=== PATIENT | female | born 1960 | race Caucasian/White ===

== ENCOUNTER 2018-04-11 12:27 | Day surgery (SDC) | payer MEDICAID ==
[2018-04-07 11:42] VITALS: BMI 32.1
[2018-04-11 12:58] LABS: BASO # 0.03 K/mm3 (0.0-2.0); BASO % 0.3 % (0.0-3.0); EOS # 0.1 (0.0-0.7); EOS % 0.8 % (1.5-5.0); GRAN # 7.1 (1.4-6.5); GRAN % 72.9 % (50.0-68.0); HEMOGLOBIN 11.8 g/dL (12.0-16.0); LYMPH % 20.8 % (22.0-35.0); MEAN CELL VOLUME 85.6 fl (80.0-105.0); MEAN CORPUSCULAR HEMOGLOBIN 27.4 pg (25.0-35.0); MEAN CORPUSCULAR HGB CONC 32.1 g/dl (31.0-37.0); MEAN PLATELET VOLUME 8.3 fl (7.0-11.0); MONO # 0.5 (0.1-0.6); MONO % 5.2 % (1.0-6.0); RBC 4.3 10^6/uL (3.5-6.1); RED CELL DISTRIBUTION WIDTH 13.5 % (11.5-14.5); WHITE BLOOD COUNT 9.8 10^3/ul (4.5-11.0)
[2018-04-11 13:05] LABS: INR 1.28; PARTIAL THROMBOPLASTIN TIME 29.3 Seconds (25.1-36.5); PROTHROMBIN TIME 14.8 SECONDS (9.4-12.5)
[2018-04-11 13:06] LABS: BLOOD UREA NITROGEN 9 mg/dL (7-21); CALCIUM 9.5 mg/dL (8.4-10.5); GFR NON-AFRICAN AMERICAN > 60
[2018-04-11] MEDS ORDERED: Midazolam 2 MG/2 ML VIAL ONE (15:10)
[2018-04-11] MEDS ORDERED: Oxycodone/Acetaminophen 5/325 mg Tab PO PRN (16:03)
[2018-04-11] MEDS ORDERED: Sodium Chloride 0.45% 1,000 ML IV SCH (16:15)
[2018-04-11] MEDS ORDERED: Midazolam 2 MG/2 ML VIAL IVP ONE (16:26)
[2018-04-11 18:04] VITALS: TEMP 98.3
[2018-04-11 18:17] VITALS: RESP 18
[2018-04-11 18:48] VITALS: BP 108/64; PULSE 88; O2SAT 100
--- NOTE | 2018-04-11 18:59 | CT ---
PROCEDURE: CT guided liver biopsy. HISTORY: Gallbladder carcinoma with liver involvement. Needs liver biopsy PHYSICIAN(S): Aguila Bey MD. TECHNIQUE: The relative risks and indications of the procedure were explained to the patient and her daughter and consent obtained. The patient was placed supine on the CT scanner and preliminary images through the liver obtained. Conscious sedation and monitoring were provided throughout the procedure by a nurse. There is a gallbladder mass with extension into the right lobe of the liver.. A right anterior oblique approach was selected and the area prepped and draped in the usual sterile fashion. 1% Xylocaine was used to anesthetize the skin and soft tissues. A 17-gauge guiding needle was advanced into the 12 cm right liver mass adjacent to the gallbladder. Its position was confirmed with CT. Using coaxial technique, multiple core biopsies were obtained. The postprocedure images show no evidence of significant hemorrhage. IMPRESSION: 1. CT-guided liver biopsy as described above.
== END 2018-04-11 18:50 | disposition home or self-care (01) ==
LOC: SDS 12:27
PROVIDERS: ATTEND Radiology Vascular & Interventional Radiology
DX: C22.7 Other specified carcinomas of liver (principal)
CPT/HCPCS: 36415; 49180; 77012; 80048; 85025; 85610; 85730; 88307; 99152; J2250; J2405; J3010; J7030

== ENCOUNTER 2018-05-02 08:56 | Day surgery (SDC) | payer MEDICAID ==
[2018-04-28 08:38] VITALS: BMI 31.1
[2018-05-02 09:34] LABS: BASO # 0.03 K/mm3 (0.0-2.0); BASO % 0.3 % (0.0-3.0); EOS # 0.1 (0.0-0.7); EOS % 1.1 % (1.5-5.0); GRAN # 6.39 (1.4-6.5); GRAN % 64.6 % (50.0-68.0); HEMOGLOBIN 10.6 g/dL (12.0-16.0); LYMPH # 2.6 (1.2-3.4); LYMPH % 25.8 % (22.0-35.0); MEAN CELL VOLUME 85.3 fl (80.0-105.0); MEAN CORPUSCULAR HEMOGLOBIN 27.3 pg (25.0-35.0); MEAN PLATELET VOLUME 8.3 fl (7.0-11.0); MONO # 0.8 (0.1-0.6); MONO % 8.2 % (1.0-6.0); RBC 3.88 10^6/uL (3.5-6.1); RED CELL DISTRIBUTION WIDTH 13.4 % (11.5-14.5); WHITE BLOOD COUNT 9.9 10^3/uL (4.5-11.0)
[2018-05-02 09:42] LABS: INR 1.17; PARTIAL THROMBOPLASTIN TIME 30.3 Seconds (25.1-36.5); PROTHROMBIN TIME 13.5 SECONDS (9.4-12.5)
[2018-05-02 09:44] LABS: BLOOD UREA NITROGEN 9 mg/dL (7-21); CALCIUM 9.1 mg/dL (8.4-10.5); GFR NON-AFRICAN AMERICAN > 60
[2018-05-02] MEDS ORDERED: Lidocaine 2% Inj (20ml) ONE (10:33)
[2018-05-02] MEDS ORDERED: Iodixanol 320 MG/ML 100 ML BOTTLE IV ONE (10:33)
[2018-05-02] MEDS ORDERED: Midazolam 2 MG/2 ML VIAL ONE (11:42)
[2018-05-02] MEDS ORDERED: Oxycodone/Acetaminophen 5/325 mg Tab PO PRN (12:33)
[2018-05-02] MEDS ORDERED: Sodium Chloride 0.45% 1,000 ML IV SCH (12:45)
[2018-05-02 13:28] VITALS: TEMP 98.3
[2018-05-02 14:11] VITALS: BP 92/56; PULSE 82; RESP 20; O2SAT 96
--- NOTE | 2018-05-02 19:27 | VASCULAR ---
PROCEDURE: Ultrasound and fluoroscopic right internal jugular venous access port. CLINICAL HISTORY: Metastatic gallbladder carcinoma.Venous port for chemotherapy. PHYSICIAN(S): Aguila Bey M.D. TECHNIQUE: The relative risks and indications of the procedure were explained to the patient and her family and consent obtained. The patient was placed supine on the arteriogram table and the right neck and chest prepped and draped in the usual sterile fashion. Conscious sedation monitoring was provided throughout the procedure by a nurse. Antibiotics were given prior to the procedure. Under direct ultrasound guidance, the right internal jugular vein was punctured with a micro-puncture set. A 0.035 angled Glidewire was advanced into the IVC. A 4 cm incision was made below the right clavicle and the pocket blunted dissected. A 8 Irish single-lumen catheter, 24 cm long, was advanced to the SVC/RA junction. The catheter was trimmed and attached to the port. The port aspirates and injects easily. The port was placed in the pocket and closed in 2 layers. The patient tolerated the procedure well. IMPRESSION: Ultrasound and fluoroscopically placed right internal jugular venous access port.
== END 2018-05-02 15:15 | disposition home or self-care (01) ==
LOC: SDS 08:56
PROVIDERS: ATTEND Radiology Vascular & Interventional Radiology
DX: C23 Malignant neoplasm of gallbladder (principal); M81.0 Age-related osteoporosis without current pathological fracture
CPT/HCPCS: 36415; 36561; 76937; 77001; 80048; 85025; 85610; 85730; 99152; 99153; C1769; C1788; J0690; J1644; J2250; J2405; J3010; J7030

== ENCOUNTER 2018-06-22 16:08 | Outpatient (CLI) | payer MEDICAID | END 2018-06-22 16:09 | disposition home or self-care (01) | LOC: LAB 16:08 ==

== ENCOUNTER 2018-06-28 18:43 | Outpatient (CLI) | payer MEDICAID | END 2018-06-28 18:44 | disposition home or self-care (01) | LOC: LAB 18:43 ==

== ENCOUNTER 2018-07-12 17:45 | Outpatient (CLI) | payer MEDICAID | END 2018-07-12 17:46 | disposition home or self-care (01) | LOC: OPLAB 17:45 ==

== ENCOUNTER 2018-07-19 18:53 | Outpatient (CLI) | payer MEDICAID | END 2018-07-19 18:54 | disposition home or self-care (01) | LOC: OPLAB 18:53 ==

== ENCOUNTER 2018-07-26 18:40 | Outpatient (CLI) | payer MEDICAID | END 2018-07-26 18:41 | disposition home or self-care (01) | LOC: OPLAB 18:40 ==

== ENCOUNTER 2018-07-28 11:12 | Outpatient (CLI) | payer MEDICAID | END 2018-07-28 11:13 | disposition home or self-care (01) | LOC: OPLAB 11:12 ==

== ENCOUNTER 2018-08-09 17:18 | Outpatient (CLI) | payer MEDICAID | END 2018-08-09 17:19 | disposition home or self-care (01) | LOC: OPLAB 17:18 ==

== ENCOUNTER 2018-08-16 17:19 | Outpatient (CLI) | payer MEDICAID | END 2018-08-16 17:20 | disposition home or self-care (01) | LOC: OPLAB 17:19 ==

== ENCOUNTER 2018-08-23 18:10 | Outpatient (CLI) | payer MEDICAID | END 2018-08-23 18:11 | disposition home or self-care (01) | LOC: OPLAB 18:10 ==

== ENCOUNTER 2018-09-06 18:05 | Outpatient (CLI) | payer MEDICAID | END 2018-09-06 18:06 | disposition home or self-care (01) | LOC: OPLAB 18:05 ==

== ENCOUNTER 2018-09-14 09:46 | Outpatient (CLI) | payer MEDICAID | END 2018-09-14 09:47 | disposition home or self-care (01) | LOC: RAD 09:46 ==

== ENCOUNTER 2018-09-20 18:10 | Outpatient (CLI) | payer MEDICAID | END 2018-09-20 18:11 | disposition home or self-care (01) | LOC: OPLAB 18:10 ==

== ENCOUNTER → 2018-09-28 | Outpatient (CLI) | payer MEDICAID | LOC: OPLAB 18:08 ==

== ENCOUNTER 2018-10-05 16:18 | Outpatient (CLI) | payer MEDICAID | END 2018-10-05 16:19 | disposition home or self-care (01) | LOC: LAB 16:18 ==

== ENCOUNTER 2018-10-07 13:07 | Inpatient (IN) | payer MEDICAID ==
--- NOTE | 2018-10-07 13:26 | ED PDOC ---
Arrival/HPI - General Time Seen by Provider: 10/07/18 13:10 Historian: Patient, Family (Daughter) - History of Present Illness Narrative History of Present Illness (Text): 10/07/18 13:20 A 58 year old female, whose past medical history includes breast and gall bladder CA, presents to the emergency department after being sent in by her oncologist for admission for infection. Patient's daughter notes that patient received a hydration treatment today in oncology. She notes that the patient had been having a fever of 102, but was given Tylenol today and the fever decreased. Dr. العلي requested patient be evaluated in the emergency department for ad mission to see where the infection is coming from. Patient has been on Vancomycin and Merrem for the infection. The patient currently denies chills, headache, dizziness, chest pain, shortness of breath, dyspnea on exertion, cough, abdominal pain, nausea, vomiting, diarrhea, back pain, neck pain, urinary/bowel changes, or any other complaint. PMD: Dr. Cedillo Surgery: Dr. Mattson Oncologist: Dr. العلي IR: Dr. Bey Time/Duration: Prior to Arrival Symptom Course: Unchanged Activities at Onset: Rest, Light Context: Other (Oncology) Past Medical History - Provider Review Nursing Documentation Reviewed: Yes - Cardiac Hx Pacemaker: No - Neurological Hx Paralysis: No - Hematological/Oncological Hx Blood Transfusions: No Hx Blood Transfusion Reaction: No - Musculoskeletal/Rheumatological Hx Musculoskeletal Disorders: Yes - Psychiatric Hx Emotional Abuse: No Hx Physical Abuse: No Hx Substance Use: No - Anesthesia Hx Anesthesia Reactions: No Hx Malignant Hyperthermia: No - Suicidal Assessment Feels Threatened In Home Enviroment: No Family/Social History - Physician Review Nursing Documentation Reviewed: Yes Family/Social History: No Known Family HX Hx Alcohol Use: No Hx Substance Use: No Allergies/Home Meds Allergies/Adverse Reactions: Allergies Penicillins Allergy (Unknown, Verified 04/07/18 11:42) FAINTING PT AVOIDS TAKING DUE TO FAMILY HX OF ALLERGIC REACTIONS Home Medications: Home Meds Medication Instructions Recorded Confirmed Zolpidem [Ambien] 10 mg PO HS 07/04/18 10/07/18 Review of Systems - Physician Review All systems were reviewed & negative as marked: Yes - Review of Systems Constitutional: Fevers Respiratory: absent: SOB, Cough Cardiovascular: absent: Chest Pain, HIGUERA Gastrointestinal: absent: Abdominal Pain, Stool Changes, Diarrhea, Nausea, Vomiting Genitourinary Female: absent: Urine Output Changes Musculoskeletal: absent: Back Pain, Neck Pain Neurological: absent: Headache, Dizziness Physical Exam Appearance: Positive for: Well-Appearing, Non-Toxic, Comfortable Pain Distress: None Mental Status: Positive for: Alert and Oriented X 3 - Systems Exam Head: Present: Atraumatic, Normocephalic Pupils: Present: PERRL Extroacular Muscles: Present: EOMI Conjunctiva: Present: Normal Mouth: Present: Dry Neck: Present: Normal Range of Motion Respiratory/Chest: Present: Clear to Auscultation, Good Air Exchange, Other (Palpable port in the right upper chest). No: Respiratory Distress, Accessory Muscle Use Cardiovascular: Present: Regular Rate and Rhythm, Normal S1, S2. No: Murmurs Abdomen: No: Tenderness, Distention, Peritoneal Signs Back: Present: Normal Inspection Upper Extremity: Present: Normal Inspection. No: Cyanosis, Edema Lower Extremity: Present: Normal Inspection. No: Edema Neurological: Present: GCS=15, CN II-XII Intact, Speech Normal Skin: Present: Warm, Dry, Normal Color. No: Rashes Psychiatric: Present: Alert, Oriented x 3, Normal Insight, Normal Concentration Medical Decision Making ED Course and Treatment: 10/07/18 13:28 Impression: A 58 year old female presents to the emergency department from oncology for admission due to infection. Plan: -- Chest X-ray -- EKG -- Abdominal US -- IV Fluids -- Reassess and disposition Prior Visits: Notes and results from previous visits were reviewed. Progress Notes: 10/07/18 13:55 Labs from clinic reviewed with WBC noted to be 4, but Discussed case with Dr. Cedillo(PCP) who state patient should be admitted to her service with Dr. العلي(oncology) and Dr. High(GI) as consults. - RAD Interpretation Narrative RAD Interpretations (Text): Chest X-ray Signed By: Michael Lozano MD Dictated Date/Time: 10/07/18 2482 Impression: Superior mediastinal fullness reflects intrathoracic extension of an enlarged right thyroid lobe, finding confirmed recent CT scan of the chest performed 09/14/2018. - EKG Interpretation EKG Interpretation (Text): 10/07/18 15:01: EKG shows sinus tachycardia with heart rate at [address] e levations or T- wave inversions. Slight QT prolongation. Abdominal Ultrasound Signed By: Michael Lozano MD Dictated Date/Time: 10/07/18 1604 Hepatmegaly, hepatic steatosis. Multiple ill- defined massess throughout liver primarily the right lobe with the largest mass is seen. The findings are more cysts likely to represent tumor/ metastatic disease than hepatocellular disease. Splenomegaly. Cholelithiasis without CT evidence of acute cholecystitits. Chest X-ray Signed By: Michael Lozano MD Dictated Date/Time: 10/07/18 1514 Impression:No active disease. Interpreted by ED Physician: Yes Type: 12 lead EKG - Scribe Statement The provider has reviewed the documentation as recorded by the Kimberlyibniki Guerrero Provider Scribe Attestation: All medical record entries made by the Scribe were at my direction and personally dictated by me. I have reviewed the chart and agree that the record accurately reflects my personal performance of the history, physical exam, medical decision making, and the department course for this patient. I have also personally directed, reviewed, and agree with the discharge instructions and disposition.
[2018-10-07] MEDS ORDERED: Sodium Chloride 0.9% 1,000 ML IV STA (13:54)
[2018-10-07] MEDS ORDERED: Vancomycin 1gm in NS 250ml 1 GM/250 ML BAG IVPB STA (14:24)
[2018-10-07] MEDS ORDERED: Meropenem IV 1 gm in NS 1 GM/50 ML BAG IVPB ONE (14:27)
[2018-10-07 15:04] LABS: VENOUS BLOOD GAS BASE EXCESS -1.8 mmol/L (0.0-2.0); VENOUS BLOOD GAS PO2 47 mm/Hg (30-55); VENOUS BLOOD PH 7.38 (7.32-7.43)
--- NOTE | 2018-10-07 15:18 | RAD ---
Date of service: 10/07/2018 HISTORY: Shortness of breath. COMPARISON: No prior. FINDINGS: LUNGS: No active pulmonary disease. PLEURA: No significant pleural effusion identified, no pneumothorax apparent. CARDIOVASCULAR: No atherosclerotic calcification present Venous access catheter in satisfactory position. OSSEOUS STRUCTURES: No significant abnormalities. VISUALIZED UPPER ABDOMEN: Normal. OTHER FINDINGS: Superior mediastinal fullness reflects intrathoracic extension of an enlarged right thyroid lobe, finding confirmed recent CT scan of the chest performed 09/14/2018. IMPRESSION: No active disease.
--- NOTE | 2018-10-07 16:01 | CP.PCM.CON ---
<Sarah Kent - Last Filed: 10/07/18 17:26> History of Present Illness - History of Present Illness History of Present Illness: Sarah Kent, PGY-1, GI Consult Note for Dr. 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 العلي's office. Patient had fever of 106 yesterday and 102 today, was given tylenol with resolution of fever. Dr. العلي admitted patient to evaluate for infection as procalcitonin was 24.41. Patient was started on vancomycin and merrem today. In general, chemotherapy leads to side effects of fever, chills, and rash of the right chest chemotherapy port. This has happened during the 3rd and 5th cycle. When patient has fever during cycles, it is usually around 100.8 as per her family. Today, patient denies shortness of breath, cough, sputum, wheezing, nausea, vomiting, abdominal pain, jaundice, change in BM, dysuria, hematuria, change in urinary frequency. She does report chronic erythema of port on right side of chest. She denies warmth or tenderness of the site at this time. Review of Systems - Review of Systems Review of Systems: except as mentioned in HPI Past Patient History - Past Social History Smoking Status: Never Smoked - CARDIAC Hx Pacemaker: No - NEUROLOGICAL Hx Paralysis: No - HEMATOLOGICAL/ONCOLOGICAL Hx Blood Transfusions: No Hx Blood Transfusion Reaction: No - MUSCULOSKELETAL/RHEUMATOLOGICAL Hx Musculoskeletal Disorders: Yes - PSYCHIATRIC Hx Emotional Abuse: No Hx Physical Abuse: No Hx Substance Use: No - SURGICAL HISTORY Hx Surgeries: No - ANESTHESIA Hx Anesthesia Reactions: No Hx Malignant Hyperthermia: No Meds Allergies/Adverse Reactions: Allergies Allergy/AdvReac Type Severity Reaction Status Date / Time Penicillins Allergy Unknown FAINTING Verified 04/07/18 11:42 - Medications Medications: Current Medications Dextrose/Sodium Chloride (Dextrose 5%/0.9% Ns 1000 Ml) 1,000 mls @ 100 mls/hr IV .Q10H SHADI Vancomycin HCl (Vancomycin 1gm) 1 gm in 250 mls @ 167 mls/hr IVPB STAT STA; Protocol Stop: 10/07/18 15:53 Physical Exam - Constitutional Appears: Well, Non-toxic, No Acute Distress - Head Exam Head Exam: ATRAUMATIC, NORMAL INSPECTION, NORMOCEPHALIC - Eye Exam Eye Exam: EOMI, PERRL. absent: Scleral icterus - ENT Exam ENT Exam: Mucous Membranes Moist - Respiratory Exam Respiratory Exam: Clear to Auscultation Bilateral, NORMAL BREATHING PATTERN. absent: Rales, Rhonchi, Wheezes - Cardiovascular Exam Cardiovascular Exam: REGULAR RHYTHM, RRR, +S1, +S2. absent: Gallop, Rubs - GI/Abdominal Exam GI & Abdominal Exam: Normal Bowel Sounds, Soft. absent: Distended, Firm, Rigid, Tenderness - Extremities Exam Extremities exam: Positive for: full ROM, normal inspection. Negative for: pedal edema - Neurological Exam Neurological exam: Alert, CN II-XII Intact, Oriented x3 - Psychiatric Exam Psychiatric exam: Normal Affect, Normal Mood - Skin Additional comments: erythema around port on right side of chest without warmth or tenderness Results - Vital Signs Recent Vital Signs: Last Vital Signs Temp 98.6 F 10/07/18 15:04 Pulse 106 H 10/07/18 15:04 Resp 18 10/07/18 15:04 BP 96/61 L 10/07/18 15:04 Pulse Ox 100 10/07/18 15:04 - Labs Labs: Laboratory Results - last 24 hr 10/07/18 14:50 pO2 47 VBG pH 7.38 VBG pCO2 39.0 L VBG HCO3 23.1 VBG Total CO2 24.3 VBG O2 Sat (Calc) 87.7 H VBG Base Excess -1.8 L VBG Potassium 3.7 Sodium 137.0 Chloride 109.0 H Glucose 82 Lactate 1.7 FiO2 21.0 Venous Blood Potassium 3.7 Assessment & Plan - Assessment and Plan (Free Text) Assessment: 58 year old female with past medical history of 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 العلي's office for fever and high procalcitonin #Evaluation for sepsis with unknown source #Cholangiocarcinoma #Liver metastasis #Right thyroid nodule #Left breast primary tumor Plan: -Chest X ray shows no evidence of effusions -UA shows no evidence of UTI -Procalcitonin: 24.41 -Follow up Blood cultures, abdominal ultrasound for sign of infection -Infection likely from port cellulitis vs. side effects of chemotherapy. Cannot rule out colitis, gastroenteritis, or ascending cholangitis. -Will consider Abdomincal CT vs. MRCP for further evaluation -Will follow up with ID recommendations for antibiotics. Patient is currently on vancomycin and merrem. Patient plan discussed with Dr. High - Date & Time Date: 10/07/18 Time: 16:03 <Masha High V - Last Filed: 10/07/18 23:41> Meds - Medications Medications: Current Medications Acetaminophen (Tylenol 325mg Tab) 650 mg PO Q4H PRN PRN Reason: pain fever Famotidine (Pepcid) 40 mg PO HS SHADI Last Admin: 10/07/18 22:05 Dose: 40 mg Dextrose/Sodium Chloride (Dextrose 5%/0.9% Ns 1000 Ml) 1,000 mls @ 100 mls/hr IV .Q10H SHADI Meropenem (Merrem Iv 1 Gm Premix) 1 gm in 50 mls @ 100 mls/hr IVPB Q8 SHADI; Protocol Vancomycin HCl (Vancomycin 1gm) 1 gm in 250 mls @ 167 mls/hr IVPB Q12H SHADI; Protocol Ondansetron HCl (Zofran Inj) 4 mg IVP Q6 PRN PRN Reason: Nausea/Vomiting Zolpidem Tartrate (Ambien) 5 mg PO HS SHADI; Protocol Last Admin: 10/07/18 22:05 Dose: 5 mg Results - Vital Signs Recent Vital Signs: Last Vital Signs Temp 99 F 10/07/18 18:00 Pulse 104 H 10/07/18 18:00 Resp 20 10/07/18 18:00 BP 104/68 10/07/18 18:00 Pulse Ox 99 10/07/18 18:00 - Labs Labs: Laboratory Results - last 24 hr 10/07/18 14:50 pO2 47 VBG pH 7.38 VBG pCO2 39.0 L VBG HCO3 23.1 VBG Total CO2 24.3 VBG O2 Sat (Calc) 87.7 H VBG Base Excess -1.8 L VBG Potassium 3.7 Sodium 137.0 Chloride 109.0 H Glucose 82 Lactate 1.7 FiO2 21.0 Venous Blood Potassium 3.7 Attending/Attestation - Attestation I have personally seen and examined this patient.: Yes I have fully participated in the care of the patient.: Yes I have reviewed all pertinent clinical information: Yes Notes (Text): This is an addendum to the GI consultation report dictated by the resident. The patient was seen and evaluated the area. The sonogram was reviewed. Sepsis gallbladder cancer/glandular carcinoma on chemo rule out port infection rule out cholangitis . We would recommend follow-up of the cultures continue the antibiotics We would consider further evaluation including MRI based on the clinical course 10/07/18 23:39
--- NOTE | 2018-10-07 16:07 | US ---
Date of service: 10/07/2018 HISTORY: h/o gallbladder ca w/ fever COMPARISON: None. TECHNIQUE: Sonographic evaluation of the abdomen. FINDINGS: LIVER: Measures 17.7 cm. Patent portal and hepatic venous systems. Hepatopedal blood flow. Fatty infiltration manifest ultrasonographically as increased echogenicity of the liver parenchyma. Multiple ill-defined mixed echoic masses. The largest is in the right hepatic lobe measures 8.4 x 9.3 x 8.9 cm. Additional smaller, ill-defined, infiltrative masses noted. GALLBLADDER: Collapsed stomach contracted gallbladder with echogenic foci in shadowing consistent with gallstones. COMMON BILE DUCT: Measures 3.2 mm. No stones. No dilatation. PANCREAS: Unremarkable as visualized. No mass. No ductal dilatation. RIGHT KIDNEY: Measures 5 x 12 7cm. Normal echogenicity. No calculus, mass, or hydronephrosis. LEFT KIDNEY: Measures 4.8 x 13.8cm. Normal echogenicity. No calculus, mass, or hydronephrosis. SPLEEN: Splenomegaly. Orthogonal measurements 4.4 x 9.8 x 15.8 AORTA: No aneurysmal dilatation. IVC: Unremarkable. OTHER FINDINGS: None. IMPRESSION: Hepatomegaly, hepatic steatosis. Multiple ill-defined masses throughout liver primarily the right lobe with the largest mass is seen. The findings are more cysts likely to represent tumor/metastatic disease than hepatocellular disease. Splenomegaly. Cholelithiasis without CT evidence of acute cholecystitis.
--- NOTE | 2018-10-07 16:17 | CP.PCM.CON ---
<Elizabeth Aponte - Last Filed: 10/07/18 16:42> History of Present Illness - History of Present Illness History of Present Illness: General Surgery Consult Note for Dr. 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 Patient states she was having chills overnight and had recorded temperature of 104F and took tylenol which helped with symptoms. Patient noted to have elevated temperature and procalcitonin in oncologist's office and subsequently started on vancomycin/merrrem and sent to ED for further care. Patient states she has an appointment with Dr. Garcia on 10/10/18 to establish care. She states she normally gets febrile during chemotherapy which she receives through right chest port and is currently on her 5th cycle. She denies chest pain, SOB, nausea, vomiting, dizziness, headaches, cough, sore throat, urinary complaints, blood in the stool, diarrhea, constipation, numbness, tingling, recent sickness, sick contacts at home and recent travel. 12 point ROS noted here, otherwise unremarkable. PMD: Dr. Cedillo Surgery: Dr. Mattson Oncologist: Dr. العلي IR: Dr. 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, thyroid s/p oxaliptin/gemcitabine treatment and right thyroid mass Sx: Right chest port placed in 04/2018 by IR Social: denies drinking/smoking/drug use All: PCN Past Patient History - Past Social History Smoking Status: Never Smoked - CARDIAC Hx Pacemaker: No - NEUROLOGICAL Hx Paralysis: No - HEMATOLOGICAL/ONCOLOGICAL Hx Blood Transfusions: No Hx Blood Transfusion Reaction: No - MUSCULOSKELETAL/RHEUMATOLOGICAL Hx Musculoskeletal Disorders: Yes - PSYCHIATRIC Hx Emotional Abuse: No Hx Physical Abuse: No Hx Substance Use: No - SURGICAL HISTORY Hx Surgeries: No - ANESTHESIA Hx Anesthesia Reactions: No Hx Malignant Hyperthermia: No Meds Allergies/Adverse Reactions: Allergies Allergy/AdvReac Type Severity Reaction Status Date / Time Penicillins Allergy Unknown FAINTING Verified 04/07/18 11:42 - Medications Medications: Current Medications Dextrose/Sodium Chloride (Dextrose 5%/0.9% Ns 1000 Ml) 1,000 mls @ 100 mls/hr IV .Q10H SHADI Physical Exam - Constitutional Appears: Non-toxic, No Acute Distress - Head Exam Head Exam: ATRAUMATIC - Eye Exam Eye Exam: EOMI Pupil Exam: PERRL - ENT Exam ENT Exam: Mucous Membranes Moist - Neck Exam Neck exam: Positive for: Normal Inspection. Negative for: Lymphadenopathy - Respiratory Exam Respiratory Exam: Clear to Auscultation Bilateral. absent: Accessory Muscle Use, Wheezes, Respiratory Distress - Cardiovascular Exam Cardiovascular Exam: +S1, +S2. absent: Tachycardia Additional comments: right chest port noted for chemotherapy - GI/Abdominal Exam GI & Abdominal Exam: Normal Bowel Sounds, Soft. absent: Firm, Guarding Additional comments: RLQ tenderness appreciated with deep palpation - Extremities Exam Extremities exam: Positive for: normal inspection, pedal pulses present. Negative for: calf tenderness, tenderness - Neurological Exam Neurological exam: Alert, CN II-XII Intact, Oriented x3 - Skin Skin Exam: Normal Color, Warm Results - Vital Signs Recent Vital Signs: Last Vital Signs Temp 98.6 F 10/07/18 15:04 Pulse 106 H 10/07/18 15:04 Resp 18 10/07/18 15:04 BP 96/61 L 10/07/18 15:04 Pulse Ox 100 10/07/18 15:04 - Labs Labs: Laboratory Results - last 24 hr 10/07/18 14:50 pO2 47 VBG pH 7.38 VBG pCO2 39.0 L VBG HCO3 23.1 VBG Total CO2 24.3 VBG O2 Sat (Calc) 87.7 H VBG Base Excess -1.8 L VBG Potassium 3.7 Sodium 137.0 Chloride 109.0 H Glucose 82 Lactate 1.7 FiO2 21.0 Venous Blood Potassium 3.7 Assessment & Plan - Assessment and Plan (Free Text) Assessment: This is a 58 year old female with PMH of left breast carinoma hormone positive receptor, 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 Liver biopsy : adenocarcinoma, well-differentiated. Cholangiocarcinoma favored in view of histological features. Possibiity of mullerian/sandwich hand tract primary of mucinous type; however unlikely in view of solitary liver mass. PET CT scan 04/14/18: heterogenous enlarged liver consistent with hepatic metastases/malignancy. Suspect cesia hepatis/portal caval adenopathy with FDG avidity. Left breast nodule with mild increased FDG uptake. Enlarged heterogenous right thyroid love with calcification and substernal extension. This mass deviates trachea to the left and is concerning for malignancy. Chest CT 09/04/18: Large heterogenous mass in the right lobe of the thyroid measuring [id number]. Liver CT 09/14/18: large heterogenous mass in the inferoir portion of the posterior right lobe of the liver measuring 8.6cm wide by 9.6cm. Abdominal US 10/07/18: hepatomegaly, hepatic steatosis. Multiple ill-defined masses throughout liver primarily the right love with the largest mass is seen. findings are more cysts likely to represent tumor/metastatic disease than hepatocellular disease. Splenomegaly. Cholelithiasis without evidence of acute cholecystitis. * Sepsis 2/2 chemotherapy vs bacteremia vs pneumonia * History of stage IV cholangiocarcinoma with mets to liver, breast, thyroid Plan: -continue IV antibiotics -continue with medical management -further recommendations per Dr. Garcia <Randy Garcia - Last Filed: 10/08/18 14:22> Meds - Medications Medications: Current Medications Acetaminophen (Tylenol 325mg Tab) 650 mg PO Q4H PRN PRN Reason: pain fever Famotidine (Pepcid) 40 mg PO HS SHADI Last Admin: 10/07/18 22:05 Dose: 40 mg Dextrose/Sodium Chloride (Dextrose 5%/0.9% Ns 1000 Ml) 1,000 mls @ 100 mls/hr IV .Q10H SHADI Last Admin: 10/08/18 05:05 Dose: 100 mls/hr Meropenem (Merrem Iv 1 Gm Premix) 1 gm in 50 mls @ 100 mls/hr IVPB Q8 SHADI; Protocol Last Admin: 10/08/18 13:14 Dose: 100 mls/hr Vancomycin HCl (Vancomycin 1gm) 1 gm in 250 mls @ 167 mls/hr IVPB Q12H SHADI; Protocol Last Admin: 10/08/18 10:00 Dose: 167 mls/hr Ondansetron HCl (Zofran Inj) 4 mg IVP Q6 PRN PRN Reason: Nausea/Vomiting Zolpidem Tartrate (Ambien) 5 mg PO HS SHADI; Protocol Last Admin: 10/07/18 22:05 Dose: 5 mg Results - Vital Signs Recent Vital Signs: Last Vital Signs Temp 99.2 F 10/08/18 08:10 Pulse 119 H 10/08/18 08:10 Resp 20 10/08/18 08:10 BP 89/59 L 10/08/18 08:10 Pulse Ox 95 10/08/18 08:10 - Labs Result Diagrams: 10/08/18 06:10 10/08/18 06:10 Labs: Laboratory Results - last 24 hr 10/07/18 10/07/18 10/08/18 14:50 23:10 00:45 WBC RBC Hgb Hct MCV MCH MCHC RDW Plt Count MPV pO2 47 VBG pH 7.38 VBG pCO2 39.0 L VBG HCO3 23.1 VBG Total CO2 24.3 VBG O2 Sat (Calc) 87.7 H VBG Base Excess -1.8 L VBG Potassium 3.7 Sodium 137.0 Chloride 109.0 H Glucose 82 Lactate 1.7 FiO2 21.0 Potassium Carbon Dioxide Anion Gap BUN Creatinine Est GFR ( Amer) Est GFR (Non-Af Amer) Random Glucose Calcium Procalcitonin 30.12 H Venous Blood Potassium 3.7 Urine Color Yellow Urine Appearance Clear Urine pH 7.0 Ur Specific [place] 1.015 Urine Protein Negative Urine Glucose (UA) Negative Urine Ketones Negative Urine Blood Negative Urine Nitrate Negative Urine Bilirubin Negative Urine Urobilinogen 0.2 Ur Leukocyte Esterase Negative 10/08/18 10/08/18 06:10 06:10 WBC 4.2 L RBC 3.07 L Hgb 9.3 L Hct 29.6 L MCV 96.4 MCH 30.3 MCHC 31.4 RDW 17.1 H Plt Count 51 L MPV 9.4 pO2 VBG pH VBG pCO2 VBG HCO3 VBG Total CO2 VBG O2 Sat (Calc) VBG Base Excess VBG Potassium Sodium 138 Chloride 110 H Glucose Lactate FiO2 Potassium 4.2 Carbon Dioxide 22 Anion Gap 10 BUN 8 Creatinine 0.5 L Est GFR ( Amer) > 60 Est GFR (Non-Af Amer) > 60 Random Glucose 117 H Calcium 8.7 Procalcitonin Venous Blood Potassium Urine Color Urine Appearance Urine pH Ur Specific [place] Urine Protein Urine Glucose (UA) Urine Ketones Urine Blood Urine Nitrate Urine Bilirubin Urine Urobilinogen Ur Leukocyte Esterase Assessment & Plan - Assessment and Plan (Free Text) Plan: All medical record entries made by the resident were at my direction. I have reviewed the chart and agree that the record accurately reflects my personal performance of the history, physical exam, and medical decision making.
[2018-10-07 17:16] VITALS: BMI 29.0
[2018-10-07] MEDS: Meropenem IV 1 gm in NS 1 GM/50 ML BAG IVPB SCH (23:37)
[2018-10-07] MEDS: Vancomycin 1gm in NS 250ml 1 GM/250 ML BAG IVPB SCH (23:38)
[2018-10-08 01:14] LABS: URINE BILIRUBIN NEGATIVE (NEGATIVE); URINE BLOOD NEGATIVE (NEGATIVE); URINE GLUCOSE (UA) NEGATIVE (NEGATIVE); URINE LEUKOCYTE ESTERASE NEGATIVE Leu/uL (NEGATIVE); URINE PROTEIN NEGATIVE mg/dL (<30 mg/dL); URINE UROBILINOGEN 0.2 E.U./dL (<1 E.U./dL)
[2018-10-08 01:21] LABS: URINE APPEARANCE CLEAR (CLEAR); URINE COLOR YELLOW (YELLOW)
--- NOTE | 2018-10-08 03:07 | CARD ---
APPROVED REPORT Date of service: 10/07/2018 EKG Measurement Heart [id number] <Conclusion> Poor data quality, interpretation may be adversely affected Sinus tachycardia Otherwise normal ECG
[2018-10-08] MEDS: Meropenem IV 1 gm in NS 1 GM/50 ML BAG IVPB SCH ×3 (05:05→21:51)
[2018-10-08] MEDS: Dextrose 5%/0.9% NS 1,000 ML IV SCH (05:05)
[2018-10-08 06:58] LABS: HEMOGLOBIN 9.3 g/dL (12.0-16.0); MEAN CELL VOLUME 96.4 fl (80.0-105.0); MEAN CORPUSCULAR HEMOGLOBIN 30.3 pg (25.0-35.0); MEAN CORPUSCULAR HGB CONC 31.4 g/dl (31.0-37.0); MEAN PLATELET VOLUME 9.4 fl (7.0-11.0); RBC 3.07 10^6/uL (3.5-6.1); RED CELL DISTRIBUTION WIDTH 17.1 % (11.5-14.5); WHITE BLOOD COUNT 4.2 10^3/uL (4.5-11.0)
[2018-10-08 07:28] LABS: BLOOD UREA NITROGEN 8 mg/dL (7-21); CALCIUM 8.7 mg/dL (8.4-10.5); GFR NON-AFRICAN AMERICAN > 60
--- NOTE | 2018-10-08 07:52 | CP.PCM.PN ---
<DuaneashleyCarolinah - Last Filed: 10/08/18 09:34> Subjective - Date & Time of Evaluation Date of Evaluation: 10/08/18 Time of Evaluation: 07:50 - Subjective Subjective: Surgery Progress Note for Dr. Mattson 58F seen and evaluated at bedside this morning. No acute events overnight. No complaints this morning. Patient denies fevers or chills. Patient denies abdominal pain. Having bowel movements. Denies n/v/d, SOB, CP, or urinary symptoms. Objective - Vital Signs/Intake and Output Vital Signs (last 24 hours): Temp Pulse Resp BP Pulse Ox 99.1 F 104 H 20 104/68 99 10/07/18 21:00 10/07/18 18:00 10/07/18 18:00 10/07/18 18:00 10/07/18 18:00 Intake and Output: 10/08/18 10/08/18 06:59 18:59 Intake Total 1830 Balance 1830 - Medications Medications: Current Medications Acetaminophen (Tylenol 325mg Tab) 650 mg PO Q4H PRN PRN Reason: pain fever Famotidine (Pepcid) 40 mg PO HS SHADI Last Admin: 10/07/18 22:05 Dose: 40 mg Dextrose/Sodium Chloride (Dextrose 5%/0.9% Ns 1000 Ml) 1,000 mls @ 100 mls/hr IV .Q10H SHADI Last Admin: 10/08/18 05:05 Dose: 100 mls/hr Meropenem (Merrem Iv 1 Gm Premix) 1 gm in 50 mls @ 100 mls/hr IVPB Q8 SHADI; Protocol Last Admin: 10/08/18 05:05 Dose: 100 mls/hr Vancomycin HCl (Vancomycin 1gm) 1 gm in 250 mls @ 167 mls/hr IVPB Q12H SHADI; Protocol Last Admin: 10/07/18 23:38 Dose: 167 mls/hr Ondansetron HCl (Zofran Inj) 4 mg IVP Q6 PRN PRN Reason: Nausea/Vomiting Zolpidem Tartrate (Ambien) 5 mg PO HS SHADI; Protocol Last Admin: 10/07/18 22:05 Dose: 5 mg - Labs Labs: 10/08/18 06:10 10/08/18 06:10 - Constitutional Appears: Well, Non-toxic, No Acute Distress - Head Exam Head Exam: ATRAUMATIC, NORMAL INSPECTION, NORMOCEPHALIC - Eye Exam Eye Exam: EOMI Pupil Exam: PERRL - ENT Exam ENT Exam: Mucous Membranes Moist - Respiratory Exam Respiratory Exam: NORMAL BREATHING PATTERN. absent: Wheezes, Respiratory Distress - Cardiovascular Exam Cardiovascular Exam: REGULAR RHYTHM, +S1, +S2. absent: Murmur - GI/Abdominal Exam GI & Abdominal Exam: Soft, Tenderness (with deep palpation in the RUQ), Normal Bowel Sounds. 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 Bundy PGY1 <Randy Guerra - Last Filed: 10/11/18 07:43> Objective - Vital Signs/Intake and Output Vital Signs (last 24 hours): Temp Pulse Resp BP Pulse Ox 98.8 F 97 H 18 100/66 98 10/09/18 16:23 10/09/18 16:23 10/09/18 16:23 10/09/18 16:23 10/09/18 16:23 - Labs Labs: 10/10/18 05:30 10/10/18 05:30 Assessment and Plan - Assessment and Plan (Free Text) Plan: All medical record entries made by the resident were at my direction. I have reviewed the chart and agree that the record accurately reflects my personal performance of the history, physical exam, and medical decision making.
[2018-10-08] MEDS: Vancomycin 1gm in NS 250ml 1 GM/250 ML BAG IVPB SCH ×2 (10:00→22:32)
--- NOTE | 2018-10-08 11:51 | CP.PCM.CON ---
History of Present Illness - History of Present Illness History of Present Illness: 58 year old female with PMH of stage 4 cholangiocarcinoma with metastasis to the liver S/P 5 cycles of chemotherapy, S/P port placement, history of left breast cancer came in from Dr. العلي's office after presenting with fever as high as 106 F. She was having shaking chills as well. She denies headache or dizziness, no sore throat, no cough or rhinorrhea, no SOB, no abdominal pain, no nausea or vomiting, no diarrhea, no dysuria. She did have some pain and mild redness around the port site yesterday, which has subsided today. On discussion with the staff of Dr. العلي's office yesterday, blood cx were drawn from the port and p eripherally as well. Infectious Diseases consult is requested to further evaluate and manage. Review of Systems - Review of Systems All systems: reviewed and no additional remarkable complaints except (as per HPI) Past Patient History - Past Social History Smoking Status: Never Smoked - CARDIAC Hx Pacemaker: No - NEUROLOGICAL Hx Paralysis: No - HEMATOLOGICAL/ONCOLOGICAL Hx Blood Transfusions: No Hx Blood Transfusion Reaction: No - MUSCULOSKELETAL/RHEUMATOLOGICAL Hx Musculoskeletal Disorders: Yes - PSYCHIATRIC Hx Emotional Abuse: No Hx Physical Abuse: No Hx Substance Use: No - SURGICAL HISTORY Hx Surgeries: No - ANESTHESIA Hx Anesthesia Reactions: No Hx Malignant Hyperthermia: No Meds Allergies/Adverse Reactions: Allergies Allergy/AdvReac Type Severity Reaction Status Date / Time Penicillins Allergy Unknown FAINTING Verified 04/07/18 11:42 - Medications Medications: Current Medications Acetaminophen (Tylenol 325mg Tab) 650 mg PO Q4H PRN PRN Reason: pain fever Famotidine (Pepcid) 40 mg PO HS SHADI Last Admin: 10/07/18 22:05 Dose: 40 mg Dextrose/Sodium Chloride (Dextrose 5%/0.9% Ns 1000 Ml) 1,000 mls @ 100 mls/hr IV .Q10H SHADI Meropenem (Merrem Iv 1 Gm Premix) 50 mls @ 100 mls/hr IVPB Q8 SHADI; Protocol Vancomycin HCl (Vancomycin 1gm) 1 gm in 250 mls @ 167 mls/hr IVPB Q12H SHADI; Protocol Ondansetron HCl (Zofran Inj) 4 mg IVP Q6 PRN PRN Reason: Nausea/Vomiting Zolpidem Tartrate (Ambien) 5 mg PO HS SHADI; Protocol Last Admin: 10/07/18 22:05 Dose: 5 mg Physical Exam - Constitutional Appears: No Acute Distress - Head Exam Head Exam: NORMAL INSPECTION - ENT Exam ENT Exam: Mucous Membranes Moist - Neck Exam Neck exam: Negative for: Lymphadenopathy, Meningismus - Respiratory Exam Respiratory Exam: Decreased Breath Sounds Additional comments: right anterior chest wall port in place with out tenderness, discharge or erythema - Cardiovascular Exam Cardiovascular Exam: +S1, +S2 - GI/Abdominal Exam GI & Abdominal Exam: Soft. absent: Tenderness Results - Vital Signs Recent Vital Signs: Last Vital Signs Temp 99 F 10/07/18 18:00 Pulse 104 H 10/07/18 18:00 Resp 20 10/07/18 18:00 BP 104/68 10/07/18 18:00 Pulse Ox 99 10/07/18 18:00 - Labs Result Diagrams: 10/08/18 06:10 10/08/18 06:10 Labs: Laboratory Results - last 24 hr 10/07/18 14:50 pO2 47 VBG pH 7.38 VBG pCO2 39.0 L VBG HCO3 23.1 VBG Total CO2 24.3 VBG O2 Sat (Calc) 87.7 H VBG Base Excess -1.8 L VBG Potassium 3.7 Sodium 137.0 Chloride 109.0 H Glucose 82 Lactate 1.7 FiO2 21.0 Venous Blood Potassium 3.7 Assessment & Plan - Assessment and Plan (Free Text) Plan: Assessment Systemic inflammatory response syndrome with fevers, R/O port infection stage 4 cholangiocarcinoma with metastasis to the liver S/P 5 cycles of chemotherapy S/P port placement history of left breast cancer Plan started Vancomycin and Merrem and follow up blood cx CXR does not show infiltrates will monitor clinically
--- NOTE | 2018-10-08 13:03 | CT ---
Date of service: 10/08/2018 PROCEDURE: CT Abdomen and Pelvis with and without intravenous contrast HISTORY: [address] COMPARISON: 09/14/2018 TECHNIQUE: Axial images of the abdomen were obtained in the pre contrast, portal venous and delayed phases of enhancement. Coronal and sagittal reformats were generated. Contrast dose: 150 cc of Omni 350 Radiation dose: Total exam DLP = 1690.45 mGy-cm. This CT exam was performed using one or more of the following dose reduction techniques: Automated exposure control, adjustment of the mA and/or kV according to patient size, and/or use of iterative reconstruction technique. FINDINGS: LOWER THORAX: Unremarkable. LIVER: There is a large heterogeneous mass in the inferior portion of the posterior right lobe of the liver. This measures approximately 9 cm in diameter. Smaller rim enhancing lesions are seen superiorly in the posterior lobe of the liver anterior and posterior segments. These findings are unchanged. GALLBLADDER AND BILE DUCTS: Unremarkable. PANCREAS: Unremarkable. No gross lesion or ductal dilatation. SPLEEN: Unremarkable. ADRENALS: Unremarkable. No mass. KIDNEYS AND URETERS: Unremarkable. No hydronephrosis. No solid mass. VASCULATURE: Unremarkable. No aortic aneurysm. No aortic atherosclerotic calcification or mural plaque present. BOWEL: Unremarkable. No obstruction. No gross mural thickening. APPENDIX: Normal appendix. PERITONEUM: Unremarkable. No free fluid. No free air. LYMPH NODES: Unremarkable. No enlarged lymph nodes. BLADDER: Unremarkable. REPRODUCTIVE: Unremarkable. BONES: No acute fracture. OTHER FINDINGS: None. IMPRESSION: There is a large heterogeneous mass in the inferior portion of the posterior right lobe of the liver. This measures approximately 9 cm in diameter. Smaller rim enhancing lesions are seen superiorly in the posterior lobe of the liver anterior and posterior segments. These findings are unchanged.
[2018-10-08] MEDS ORDERED: Mupirocin 2% Ointment 15 GM TUBE TOP SCH (18:00)
--- NOTE | 2018-10-08 19:15 | CP.PCM.PN ---
<Kimberley Whitten - Last Filed: 10/08/18 19:11> Subjective - Date & Time of Evaluation Date of Evaluation: 10/08/18 Time of Evaluation: 19:12 - Subjective Subjective: Gastroenterology Fellow/PGY6 Progress Note Patient feels well. Denies abdominal pain. Tolerating diet. No bowel movement yesterday. A 12-point review of systems negative except for as above. Objective - Vital Signs/Intake and Output Vital Signs (last 24 hours): Temp Pulse Resp BP Pulse Ox 99.6 F 103 H 20 102/67 98 10/08/18 16:44 10/08/18 16:44 10/08/18 16:44 10/08/18 16:44 10/08/18 16:44 - Medications Medications: Current Medications Acetaminophen (Tylenol 325mg Tab) 650 mg PO Q4H PRN PRN Reason: pain fever Famotidine (Pepcid) 40 mg PO HS [facility] Last Admin: 10/07/18 22:05 Dose: 40 mg Dextrose/Sodium Chloride (Dextrose 5%/0.9% Ns 1000 Ml) 1,000 mls @ 100 mls/hr IV .Q10H SHADI Last Admin: 10/08/18 05:05 Dose: 100 mls/hr Meropenem (Merrem Iv 1 Gm Premix) 1 gm in 50 mls @ 100 mls/hr IVPB Q8 SHADI; Protocol Last Admin: 10/08/18 13:14 Dose: 100 mls/hr Vancomycin HCl (Vancomycin 1gm) 1 gm in 250 mls @ 167 mls/hr IVPB Q12H SHADI; Protocol Last Admin: 10/08/18 10:00 Dose: 167 mls/hr Mupirocin (Bactroban Ointment) 0 gm TOP BID SHADI Last Admin: 10/08/18 18:17 Dose: 1 unit Ondansetron HCl (Zofran Inj) 4 mg IVP Q6 PRN PRN Reason: Nausea/Vomiting Zolpidem Tartrate (Ambien) 5 mg PO HS SHADI; Protocol Last Admin: 10/07/18 22:05 Dose: 5 mg - Labs Labs: 10/08/18 06:10 10/08/18 06:10 - Constitutional Appears: Non-toxic, No Acute Distress - Head Exam Head Exam: ATRAUMATIC, NORMOCEPHALIC - Eye Exam Eye Exam: EOMI, PERRL. absent: Scleral icterus Pupil Exam: PERRL. absent: Miosis, Mydriatic - ENT Exam ENT Exam: Mucous Membranes Moist, Normal Oropharynx - Neck Exam Neck Exam: Full ROM, Normal Inspection - Respiratory Exam Respiratory Exam: Clear to Ausculation Bilateral. absent: Rales, Rhonchi, Wheezes - Cardiovascular Exam Cardiovascular Exam: RRR, +S1, +S2. absent: Gallop, Rubs - GI/Abdominal Exam GI & Abdominal Exam: Soft, Normal Bowel Sounds. absent: Distended, Firm, Guarding, Rigid, Tenderness, Mass, Rebound - Extremities Exam Extremities Exam: Normal Inspection. absent: Pedal Edema - Neurological Exam Neurological Exam: Alert, Awake - Psychiatric Exam Psychiatric exam: Normal Affect, Normal Mood - Skin Skin Exam: Dry, Intact, Normal Color, Warm Assessment and Plan - Assessment and Plan (Free Text) Assessment: 58 year old female with PMH of stage IV cholangiocarcinoma with liver metastases (on oxaliplatin/gemcitabine) and Left Breast cancer. Active treatment of SIRs criteria. GI consultation to rule out biliary source. Plan: -no sign of concern for ascending cholangitis -follow up blood and urine cultures -ID managing- on vanc, meropenem -tolerating diet -will follow clinical course <Masha High V - Last Filed: 10/09/18 00:07> Objective - Vital Signs/Intake and Output Vital Signs (last 24 hours): Temp Pulse Resp BP Pulse Ox 99.6 F 103 H 20 102/67 98 10/08/18 16:44 10/08/18 16:44 10/08/18 16:44 10/08/18 16:44 10/08/18 16:44 Intake and Output: 10/08/18 10/09/18 18:59 06:59 Intake Total 1560 Balance 1560 - Medications Medications: Current Medications Acetaminophen (Tylenol 325mg Tab) 650 mg PO Q4H PRN PRN Reason: pain fever Famotidine (Pepcid) 40 mg PO HS SHADI Last Admin: 10/08/18 21:49 Dose: 40 mg Dextrose/Sodium Chloride (Dextrose 5%/0.9% Ns 1000 Ml) 1,000 mls @ 100 mls/hr IV .Q10H SHADI Last Admin: 10/08/18 05:05 Dose: 100 mls/hr Meropenem (Merrem Iv 1 Gm Premix) 1 gm in 50 mls @ 100 mls/hr IVPB Q8 SHADI; Protocol Last Admin: 10/08/18 21:51 Dose: 100 mls/hr Vancomycin HCl (Vancomycin 1gm) 1 gm in 250 mls @ 167 mls/hr IVPB Q12H SHADI; Protocol Last Admin: 10/08/18 22:32 Dose: 167 mls/hr Mupirocin (Bactroban Ointment) 0 gm TOP BID SHADI Last Admin: 10/08/18 18:17 Dose: 1 unit Ondansetron HCl (Zofran Inj) 4 mg IVP Q6 PRN PRN Reason: Nausea/Vomiting Zolpidem Tartrate (Ambien) 5 mg PO HS SHADI; Protocol Last Admin: 10/08/18 21:49 Dose: 5 mg - Labs Labs: 10/08/18 06:10 10/08/18 06:10 Attending/Attestation - Attestation I have personally seen and examined this patient.: Yes I have fully participated in the care of the patient.: Yes I have reviewed all pertinent clinical information, including history, physical exam and plan: Yes Notes (Text): This is an addendum to the GI progress note dictated by the GI fellow patient was seen and evaluated earlier Patient was feeling better sonogram was reviewed. Scheduled for a CT of the abdomen Admitted to the sepsis gallbladder carcinoma. Source of fever is unclear. On examination abdomen was soft nontender Plan follow-up of the CT scan, follow-up with the culture continue the antibiotics as per ID 10/09/18 00:05
[2018-10-08] MEDS ORDERED: DiphenhydrAMINE 50 mg/ml Inj IVP STA (20:37)
--- NOTE | 2018-10-08 23:58 | HP ---
DATE OF EXAM: 10/08/2018 The patient was seen and examined at the bedside on 10/08/2018. CHIEF COMPLAINT: Fever. HISTORY OF PRESENT ILLNESS: Ms. 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 العلي's office after presenting with fever as high grade of 106 degrees Fahrenheit. The patient was having shaky chills. She denies headache or dizziness. No sore throat. No burning in urination. No coughing. No nausea, vomiting, or diarrhea. No abdominal pain. She did have some pain and tenderness around the port site, which has subsides today. The patient's daughter was sitting on the bedside also. Discussion done with the ER physician and with Dr. العلي himself, admitted the patient, and gave antibiotic. Cultures are done. ID is on the case. Dr. العلي is on the case also. PAST MEDICAL HISTORY: As above; musculoskeletal disorder, stage IV cholangiocarcinoma with metastasis, getting chemotherapy. ALLERGIES: THE PATIENT IS ALLERGIC WITH PENICILLIN. HOME MEDICATIONS: Tylenol, Pepcid, Merrem, vancomycin, and Ambien. PHYSICAL EXAMINATION: VITAL SIGNS: Temperature 99, pulse 104, respiratory rate 20, blood pressure 104/58, and pulse oximetry 99. HEENT: Head is normocephalic and atraumatic. Eyes; PERRLA. Extraocular muscles are intact. Conjunctivae clear. Nose patent. Mucous membranes moist. NECK: Supple. No carotid bruits, JVD, or thyromegaly. CHEST: Bilaterally symmetrical. HEART: S1 and S2 positive. LUNGS: Clear to auscultation. ABDOMEN: Soft. Bowel sounds present. No organomegaly. EXTREMITIES: No edema. No cyanosis. NEUROLOGIC: The patient is awake and alert. Follows simple commands. LABORATORY DATA: White blood cell 4.2, hemoglobin 9.2, hematocrit 29.6, and platelets 51. Sodium 130, potassium 4.2, BUN 8, creatinine 0.5, and glucose 117. IMPRESSION AND PLAN: Ms. 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 The patient was started on vancomycin and Merrem by Infectious Disease. Blood cultures were done. Chest x-ray does not show any infiltrate. Discussion done with Dr. العلي. The patient's daughter is on the bedside. Discussion done with her also. Reviewed the patient's liver CAT scan, there is a large heterogeneous mass in the inferior portion of the posterior right lobe of the liver with metastasis, this measures approximately 9 cm in diameter, small ring enhancing lesions are seen in the posterior lobe of the liver anterior and posterior segments, these findings are unchanged. We will repeat labs. We will follow up. Flaquita Cedillo MD MTDD
--- NOTE | 2018-10-09 02:30 | CON ---
DATE: 10/08/2018 LOCATION: The patient is in room 365, bed 2. The patient was seen by us in the outpatient Oncology Clinic and admitted via the emergency room. 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 Blood cultures and procalcitonin done the day before in the Oncology Clinic, which showed the procalcitonin to be elevated, this in conjunction with a temperature and was thought to be possibly infection. In view of this, we decided to admit the patient to the emergency room. In the Oncology Clinic, the patient got a stat dose of vancomycin and meropenem as a broad-spectrum coverage especially to include the hepatobiliary tract since she has gallbladder carcinoma. The patient's medical history also includes history of documented left breast cancer, ER/DC positive, HER2/abdi negative, low Oncotype DX assay score, currently not on any treatments for that, her treatments have been focused towards the gallbladder carcinoma. The patient since admission has been feeling well, has been seen by Infectious Disease. Continues on IV fluids. The patient had a CAT scan of the abdomen with triphasic contrast done this morning and also had an ultrasound of the abdomen. Overall, the patient is feeling better. Denies any chills, headaches, dizziness, chest pain, shortness of breath, or dyspnea on exertion. The patient has irritation at the site of the port with a small area of open skin just lateral to the port area over the prior scar which is of concern to us as this could be a for infection. Currently, the patient is feeling better while on the floor. REVIEW OF SYSTEMS: The patient has been having chills and fever for the last 48 hours, which prompted the admission. No history of nausea or vomiting. No history of hematochezia. No history of hematemesis. The patient has been having severe aches and pain as a result of the fevers. The patient's appetite is slightly decreased as well. ALLERGIES: THERE IS A FAMILY HISTORY OF PENICILLIN ALLERGY, BUT THE PATIENT HAS NO KNOWN ALLERGIES, PLEASE MAKE A NOTE OF IT. FAMILY HISTORY: Significant for the fact that there is a lot of family members with gallstones including one of her sisters who underwent gallbladder surgery. PHYSICAL EXAMINATION: GENERAL: Reveals the patient to be awake, alert, and oriented in no acute distress, nontoxic, and comfortable. The patient has no significant pain. The patient is awake, alert, and oriented x3. VITAL SIGNS: Stable as stated in the chart. HEENT: Head to be normocephalic and atraumatic. Conjunctivae pale. Sclerae are anicteric. Pupils are equally reactive to light and accommodation. Examination of the oropharynx reveals no oropharyngeal lesions. Mouth reveals no oropharyngeal lesions. Tongue is coated and dry. NECK: Supple. There is no adenopathy. LUNGS: Clear to percussion and auscultation. The patient has a palpable port in the right infraclavicular region. There is one area of open wound lateral to the scar where the pocket for the insertion of the port was made in the past. CARDIOVASCULAR: Reveals S1 and S2 to be normal. No gallop or murmur is heard. ABDOMEN: Soft and nontender. Liver is felt and palpable four fingerbreadths below the right coastal margin. No rebound, rigidity, or guarding is noted. BACK: Reveals no costophrenic angle pain. No other abnormalities are noted. EXTREMITIES: Upper and lower extremities are noted to be normal with inspection and palpation. No cyanosis, clubbing, or edema is noted. SKIN: Warm and dry. No skin rashes are noted. PSYCHIATRIC: The patient is awake, alert, and oriented with normal affect. GENITOURINARY AND RECTAL: Deferred. LABORATORY DATA: EKG done in the ER shows sinus tachycardia without any ST-T elevations. Abdominal ultrasound reveals hepatomegaly, hepatic steatosis, multiple ill-defined masses throughout the right lobe of the liver, findings most likely represent tumor of the nodules. CT angio was done. CT with triphasic contrast was done this morning reveals no changes in the lesion without any evidence of any hepatobiliary issues at this time on hand. Lab data was also reviewed. Despite the elevation of the procalcitonin, blood cultures done 2 days ago are negative and blood cultures yesterday also are negative. CBC reveals a white count of 4.2, hemoglobin 9.3, hematocrit 29.6, and platelet count is 51,000 related to recent treatment with oxaliplatin. Electrolytes are normal. Sodium is 138, K is 4.2, and chloride is 110. Procalcitonin yesterday was 30.12. Random sugar is 117. Urinalysis is negative. 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 Differential diagnoses would be either an infection or systemic inflammatory response syndrome post chemotherapy, pending cultures are coming back. The patient is to continue antibiotics. Looking at the x-rays and since the patient looks nontoxic today most likely it is an systemic inflammatory response syndrome. The patient is going to be seen by Dr. Mattson with hepatobiliary surgeon on our service at [facility]. The patient's case was recently presented in Tumor Board and if she continues to do well, plan is to assess the patient for possible laparoscopy to assess internally what the status of the disease is. If the disease is just confines to the right lobe of the liver without any extrahepatic spread which what appears to be currently on the scans done x2 along with the PET scan done in the recent past. Our plan will be then to assess the patient for Yttrium-90 ablation and/or possible resection. All of these have been explained in detail to the patient and her family, hopefully something positive will come out of the situation. Currently, they are going to put the chemotherapy on hold. She has had so far 5 cycles of GEMOX chemotherapy. Our plan is to debate and find out which direction to proceed from the surgical point of view where the patient gets radioactive therapy as well. It will all be determined in combination with discussions with the other consultants. Please make a note that this is a complex patient with multiple comorbid medical issues. Currently, we have decided not to treat her breast cancer with any aromatase inhibitors given the fact she has already on systemic chemotherapy for her locally advanced gallbladder cancer. Time spent with the patient is 80 minutes. Time was spent in correlating all the data, given copies to the patient and the patient's family. Discussed with the patient's family, speaking to the nurses, speaking to the rehab consultant and to her primary medical physician. Katarina العلي MD
[2018-10-09] MEDS: Meropenem IV 1 gm in NS 1 GM/50 ML BAG IVPB SCH ×2 (06:21→22:44)
[2018-10-09 07:13] LABS: HEMOGLOBIN 9.4 g/dL (12.0-16.0); MEAN CELL VOLUME 95.8 fl (80.0-105.0); MEAN CORPUSCULAR HEMOGLOBIN 30.6 pg (25.0-35.0); MEAN PLATELET VOLUME 9.2 fl (7.0-11.0); RBC 3.07 10^6/uL (3.5-6.1); RED CELL DISTRIBUTION WIDTH 17.1 % (11.5-14.5); WHITE BLOOD COUNT 3.6 10^3/uL (4.5-11.0)
--- NOTE | 2018-10-09 07:28 | CP.PCM.PN ---
<Ronaldo Bassett - Last Filed: 10/09/18 07:28> Subjective - Date & Time of Evaluation Date of Evaluation: 10/09/18 Time of Evaluation: 07:26 - Subjective Subjective: Surgery Progress Note for Dr. Mattson 58F seen and evaluated at bedside this morning. No acute events overnight. Patient denies fevers or chills. Ambulating without difficulty and having bowel movements. Denies n/v/d, SOB, CP, or urinary symptoms. Objective - Vital Signs/Intake and Output Vital Signs (last 24 hours): Temp Pulse Resp BP Pulse Ox 99.4 F 103 H 20 102/67 98 10/09/18 00:00 10/08/18 16:44 10/08/18 16:44 10/08/18 16:44 10/08/18 16:44 Intake and Output: 10/09/18 10/09/18 06:59 18:59 Intake Total 1560 Balance 1560 - Medications Medications: Current Medications Acetaminophen (Tylenol 325mg Tab) 650 mg PO Q4H PRN PRN Reason: pain fever Famotidine (Pepcid) 40 mg PO HS SHADI Last Admin: 10/08/18 21:49 Dose: 40 mg Dextrose/Sodium Chloride (Dextrose 5%/0.9% Ns 1000 Ml) 1,000 mls @ 100 mls/hr IV .Q10H SHADI Last Admin: 10/08/18 05:05 Dose: 100 mls/hr Meropenem (Merrem Iv 1 Gm Premix) 1 gm in 50 mls @ 100 mls/hr IVPB Q8 SHADI; Protocol Last Admin: 10/09/18 06:21 Dose: 100 mls/hr Vancomycin HCl (Vancomycin 1gm) 1 gm in 250 mls @ 167 mls/hr IVPB Q12H SHADI; Protocol Last Admin: 10/08/18 22:32 Dose: 167 mls/hr Mupirocin (Bactroban Ointment) 0 gm TOP BID SHADI Last Admin: 10/08/18 18:17 Dose: 1 unit Ondansetron HCl (Zofran Inj) 4 mg IVP Q6 PRN PRN Reason: Nausea/Vomiting Zolpidem Tartrate (Ambien) 5 mg PO HS SHADI; Protocol Last Admin: 10/08/18 21:49 Dose: 5 mg - Labs Labs: 10/09/18 06:00 10/08/18 06:10 - Constitutional Appears: Well, Non-toxic, No Acute Distress - Head Exam Head Exam: ATRAUMATIC, NORMAL INSPECTION, NORMOCEPHALIC - Eye Exam Eye Exam: EOMI Pupil Exam: PERRL - ENT Exam ENT Exam: Mucous Membranes Moist - Respiratory Exam Respiratory Exam: NORMAL BREATHING PATTERN. absent: Wheezes, Respiratory Distress - Cardiovascular Exam Cardiovascular Exam: REGULAR RHYTHM, +S1, +S2 - GI/Abdominal Exam GI & Abdominal Exam: Soft, Normal Bowel Sounds. absent: Distended, Tenderness - Extremities Exam Extremities Exam: Normal Inspection - Neurological Exam Neurological Exam: Alert, Awake, Oriented x3 - Psychiatric Exam Psychiatric exam: Normal Affect, Normal Mood - Skin Skin Exam: Dry, Intact, Normal Color, Warm Assessment and Plan - Assessment and Plan (Free Text) Assessment: 58F, with PMH of left breast carinoma hormone positive receptor, stage IV cholangiocarcinoma from gallbladder with mets to liver, thyroid s/p oxaliptin/gemcitabine treatment and right thyroid mass who presented with oncologic fevers, now afebrile for over 24 hours Plan: [address] of Abd and Liver - right posterior lobe 9cm in diameter mass w/ small rim enhancing lesions Continue IV Abx Tylenol for fevers PRN Medical management per primary team Further recommendations regarding surgical candidacy per Dr. Bundy PGY1 <Randy Guerra - Last Filed: 10/10/18 09:03> Objective - Vital Signs/Intake and Output Vital Signs (last 24 hours): Temp Pulse Resp BP Pulse Ox 98.8 F 97 H 18 100/66 98 10/09/18 16:23 10/09/18 16:23 10/09/18 16:23 10/09/18 16:23 10/09/18 16:23 Intake and Output: 10/10/18 10/10/18 06:59 18:59 Intake Total 1220 Balance 1220 - Medications Medications: Current Medications Acetaminophen (Tylenol 325mg Tab) 650 mg PO Q4H PRN PRN Reason: pain fever Famotidine (Pepcid) 40 mg PO HS SHADI Last Admin: 10/09/18 22:44 Dose: 40 mg Dextrose/Sodium Chloride (Dextrose 5%/0.9% Ns 1000 Ml) 1,000 mls @ 100 mls/hr IV .Q10H SHADI Last Admin: 10/10/18 03:00 Dose: 100 mls/hr Meropenem (Merrem Iv 1 Gm Premix) 1 gm in 50 mls @ 100 mls/hr IVPB Q8 SHADI; Protocol Last Admin: 10/10/18 06:15 Dose: 100 mls/hr Vancomycin HCl (Vancomycin 1gm) 1 gm in 250 mls @ 167 mls/hr IVPB Q12H SHADI; Protocol Last Admin: 10/09/18 23:45 Dose: 167 mls/hr Loratadine (Claritin) 10 mg PO DAILY SHADI Mometasone Furoate (Elocon Cream) 0 gm TOP BID SHADI Last Admin: 10/09/18 18:21 Dose: Not Given Montelukast Sodium (Singulair) 10 mg PO DAILY SHADI Ondansetron HCl (Zofran Inj) 4 mg IVP Q6 PRN PRN Reason: Nausea/Vomiting Zolpidem Tartrate (Ambien) 5 mg PO HS SHADI; Protocol Last Admin: 10/09/18 22:43 Dose: 5 mg - Labs Labs: 10/10/18 05:30 10/10/18 05:30 Assessment and Plan - Assessment and Plan (Free Text) Plan: All medical record entries made by the resident were at my direction. I have reviewed the chart and agree that the record accurately reflects my personal performance of the history, physical exam, and medical decision making CT scan reviewed, concerned about satelite lesions and high CEA. Would consider Y90 to right lobe of liver. As per tumor board, agree with repeat biopsy for genetic analysis. If CEA drops signifantly, following Y90, may consider surgery
[2018-10-09 07:30] LABS: ALB/GLOB RATIO 0.8 (1.1-1.8); ALBUMIN 3.2 g/dL (3.0-4.8); ALT/SGPT 43 U/L (7-56); AST/SGOT 49 U/L (14-36); BILIRUBIN,DIRECT 0.3 mg/dL (0.0-0.4); BLOOD UREA NITROGEN 6 mg/dL (7-21); CALCIUM 8.9 mg/dL (8.4-10.5); GFR NON-AFRICAN AMERICAN > 60
[2018-10-09] MEDS: Vancomycin 1gm in NS 250ml 1 GM/250 ML BAG IVPB SCH ×2 (09:59→23:45)
--- NOTE | 2018-10-09 12:54 | CP.PCM.PN ---
<Kimberley Whitten - Last Filed: 10/09/18 12:59> Subjective - Date & Time of Evaluation Date of Evaluation: 10/09/18 Time of Evaluation: 12:50 - Subjective Subjective: Gastroenterology Fellow/PGY6 Progress Note Patient feels well. Denies abdominal pain. Tolerating diet. Notes bowel movement yesterday. A 12-point review of systems negative except for as above. Objective - Vital Signs/Intake and Output Vital Signs (last 24 hours): Temp Pulse Resp BP Pulse Ox 99 F 101 H 20 101/68 97 10/09/18 08:21 10/09/18 08:21 10/09/18 08:21 10/09/18 08:21 10/09/18 08:21 Intake and Output: 10/09/18 10/09/18 06:59 18:59 Intake Total 1560 Balance 1560 - Medications Medications: Current Medications Acetaminophen (Tylenol 325mg Tab) 650 mg PO Q4H PRN PRN Reason: pain fever Famotidine (Pepcid) 40 mg PO HS SHADI Last Admin: 10/08/18 21:49 Dose: 40 mg Dextrose/Sodium Chloride (Dextrose 5%/0.9% Ns 1000 Ml) 1,000 mls @ 100 mls/hr IV .Q10H SHADI Last Admin: 10/08/18 05:05 Dose: 100 mls/hr Meropenem (Merrem Iv 1 Gm Premix) 1 gm in 50 mls @ 100 mls/hr IVPB Q8 SHADI; Protocol Last Admin: 10/09/18 06:21 Dose: 100 mls/hr Vancomycin HCl (Vancomycin 1gm) 1 gm in 250 mls @ 167 mls/hr IVPB Q12H SHADI; Protocol Last Admin: 10/09/18 09:59 Dose: 167 mls/hr Loratadine (Claritin) 10 mg PO DAILY SHADI Mometasone Furoate (Elocon Cream) 0 gm TOP BID SHADI Montelukast Sodium (Singulair) 10 mg PO DAILY SHADI Ondansetron HCl (Zofran Inj) 4 mg IVP Q6 PRN PRN Reason: Nausea/Vomiting Zolpidem Tartrate (Ambien) 5 mg PO HS SHADI; Protocol Last Admin: 10/08/18 21:49 Dose: 5 mg - Labs Labs: 10/09/18 06:00 10/09/18 06:00 - Constitutional Appears: Non-toxic, No Acute Distress - Head Exam Head Exam: ATRAUMATIC, NORMOCEPHALIC - Eye Exam Eye Exam: EOMI, PERRL. absent: Scleral icterus Pupil Exam: PERRL. absent: Miosis, Mydriatic - ENT Exam ENT Exam: Mucous Membranes Moist, Normal Oropharynx - Neck Exam Neck Exam: Full ROM, Normal Inspection - Respiratory Exam Respiratory Exam: Clear to Ausculation Bilateral. absent: Rales, Rhonchi, Wheezes - Cardiovascular Exam Cardiovascular Exam: RRR, +S1, +S2. absent: Gallop, Rubs - GI/Abdominal Exam GI & Abdominal Exam: Soft, Normal Bowel Sounds. absent: Distended, Firm, Guarding, Rigid, Tenderness, Organomegaly, Rebound - Extremities Exam Extremities Exam: Normal Inspection. absent: Pedal Edema - Neurological Exam Neurological Exam: Alert, Awake - Psychiatric Exam Psychiatric exam: Normal Affect, Normal Mood - Skin Skin Exam: Dry, Intact, Normal Color, Warm Assessment and Plan - Assessment and Plan (Free Text) Assessment: 58 year old female with PMH of stage IV cholangiocarcinoma with liver metastases (on oxaliplatin/gemcitabine) and Left Breast cancer. Active treatment of SIRs criteria. GI consultation to rule out biliary source. Plan: -no sign of ascending cholangitis -blood and urine cultures negative to date -ID managing-on vanc, meropenem since 10/07 -trend LFTs -tolerating diet -will follow clinical course <Masha High V - Last Filed: 10/09/18 16:37> Objective - Vital Signs/Intake and Output Vital Signs (last 24 hours): Temp Pulse Resp BP Pulse Ox 98.8 F 97 H 18 100/66 98 10/09/18 16:23 10/09/18 16:23 10/09/18 16:23 10/09/18 16:23 10/09/18 16:23 Intake and Output: 10/09/18 10/09/18 06:59 18:59 Intake Total 1560 Balance 1560 - Medications Medications: Current Medications Acetaminophen (Tylenol 325mg Tab) 650 mg PO Q4H PRN PRN Reason: pain fever Famotidine (Pepcid) 40 mg PO HS SHADI Last Admin: 10/08/18 21:49 Dose: 40 mg Dextrose/Sodium Chloride (Dextrose 5%/0.9% Ns 1000 Ml) 1,000 mls @ 100 mls/hr IV .Q10H SHADI Last Admin: 10/08/18 05:05 Dose: 100 mls/hr Meropenem (Merrem Iv 1 Gm Premix) 1 gm in 50 mls @ 100 mls/hr IVPB Q8 SHADI; Protocol Last Admin: 10/09/18 06:21 Dose: 100 mls/hr Vancomycin HCl (Vancomycin 1gm) 1 gm in 250 mls @ 167 mls/hr IVPB Q12H SHADI; Protocol Last Admin: 10/09/18 09:59 Dose: 167 mls/hr Loratadine (Claritin) 10 mg PO DAILY SHADI Mometasone Furoate (Elocon Cream) 0 gm TOP BID SHADI Montelukast Sodium (Singulair) 10 mg PO DAILY SHADI Ondansetron HCl (Zofran Inj) 4 mg IVP Q6 PRN PRN Reason: Nausea/Vomiting Zolpidem Tartrate (Ambien) 5 mg PO HS SHADI; Protocol Last Admin: 10/08/18 21:49 Dose: 5 mg - Labs Labs: 10/09/18 06:00 10/09/18 06:00 Attending/Attestation - Attestation I have personally seen and examined this patient.: Yes I have fully participated in the care of the patient.: Yes I have reviewed all pertinent clinical information, including history, physical exam and plan: Yes Notes (Text): This is an addendum to the GI progress report dictated by the fellow. The patient was seen and evaluated earlier. Discussed with the patient's family who were at bedside. Denies any abdominal pain tolerating diet. I will be afebrile. Advanced cholangio-gallbladder carcinoma. Admitted with the fever source of sepsis unclear rule out port infection. Continue the antibiotics as per ID. Recent CT scan done with liver protocol was reviewed. No further GI work-up at the present time. We will discuss with the oncologist. Patient is also being followed by the hepatobiliary surgeon Dr.Del Sprague 10/09/18 16:35
[2018-10-09 16:24] VITALS: BP 100/66; PULSE 97; RESP 18; TEMP 98.8; O2SAT 98
[2018-10-09] MEDS: Mometasone 0.1% Cream(15 gm) TOP SCH (18:21)
--- NOTE | 2018-10-09 22:38 | PN ---
DATE: 10/09/2018 SUBJECTIVE: The patient is in bed, in no acute distress, nontoxic. PHYSICAL EXAMINATION VITAL SIGNS: Temperature is 98, blood pressure is 100/60 and respiratory rate of 18. HEENT: Unremarkable. NECK: Supple. LUNGS: Have decreased breath sounds, HEART: Normal S1 and S2. ABDOMEN: Soft and nontender. LABORATORY EXAMINATION: Reveals a white count of 3.6 and hemoglobin of 9. BUN of 6 and creatinine of 0.4. Blood cultures are negative. Urine cultures are negative. 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 The patient has been afebrile in the hospital; however, has had a temperature of over 106 according to this note as outpatient with negative blood cultures, negative urine cultures. The patient also had a CAT scan of the liver. Has a large heterogeneous mass in the inferior portion of the posterior right lobe over the liver 9 cm in diameter, small ring enhancing lesions are also seen, they are unchanged from the previous ones since the patient is known case of liver metastasis. Dr. High's Gastroenterology note is reviewed. Review of orders reveals the patient to be on vancomycin and meropenem. We will check on the final culture results. We will follow with you. Alejandro Chavarria MD
--- NOTE | 2018-10-10 01:24 | PN ---
DATE: 10/09/2018 SUBJECTIVE: The patient is a 58-year-old female. The patient was seen and examined at the bedside on 10/09/2018. The patient is sitting on the chair. [id number] and daughters are sitting on the bedside. No acute events happened overnight. No more fever. She has no headache or dizziness. No chest pain or palpitations. Tolerating food very well. Denies nausea, vomiting, shortness of breath, urinary symptoms. PHYSICAL EXAMINATION: VITAL SIGNS: Temperature 99.4, pulse 103, respiratory rate of 20, blood pressure 102/67, pulse oximetry 98%. HEENT: Head: Normocephalic, atraumatic. Eyes: PERRLA. Extraocular muscles intact, conjunctivae clear. Nose patent. Mucous membrane moist. NECK: Supple. No carotid bruits. No JVD. No thyromegaly. CHEST: Bilaterally symmetrical. HEART: S1, S2 positive. LUNGS: Clear to auscultation. ABDOMEN: Soft, bowel sounds present. No organomegaly. EXTREMITIES: No edema. No cyanosis. NEUROLOGICAL: The patient is awake and alert. Moving all four extremities. No focal deficits. MEDICATIONS: Tylenol, Pepcid, Merrem, vancomycin, Bactroban ointment, Zofran, Ambien. LABORATORY DATA: White blood cell 3.6, hemoglobin 9.4, hematocrit 29.4, platelets 53. Sodium 138, potassium 4.2, BUN 8, creatinine 0.7, glucose of 117. ASSESSMENT AND PLAN: Ms. Lillian Gramajo is a 58-year-old lady with leukopenia, anemia, thrombocytopenia, pancytopenia, hyperchloremia, hyperglycemia, has history of left breast carcinoma, hormone positive for sepsis, stage IV cholangiocarcinoma. A form of gallbladder with metastasis to the liver, getting chemotherapy, right thyroid mass, who came with fever. Four phase CT of the abdomen and liver done. Right posterior lobe 8 cm diameter mass with small rim enhancing lesion. Continue IV antibiotics, Tylenol p.r.n. for fever. Out of bed physical therapy. The patient was seen by Dr. Randy Mattson, director labor standards and oncologist. THE PATIENT HAS ALLERGIC REACTION WITH THE TAPE. Benadryl and Singulair given. Elocon cream, applied. Repeat labs. We will follow up. Flaquita Cedillo MD [facility] # [id number]
[2018-10-10] MEDS: Dextrose 5%/0.9% NS 1,000 ML IV SCH ×2 (03:00→11:00)
[2018-10-10] MEDS: Meropenem IV 1 gm in NS 1 GM/50 ML BAG IVPB SCH (06:15)
[2018-10-10 07:36] LABS: HEMOGLOBIN 9.3 g/dL (12.0-16.0); MEAN CELL VOLUME 95.8 fl (80.0-105.0); MEAN CORPUSCULAR HEMOGLOBIN 30.4 pg (25.0-35.0); MEAN CORPUSCULAR HGB CONC 31.7 g/dl (31.0-37.0); MEAN PLATELET VOLUME 9.9 fl (7.0-11.0); RBC 3.06 10^6/uL (3.5-6.1); RED CELL DISTRIBUTION WIDTH 16.7 % (11.5-14.5); WHITE BLOOD COUNT 3.1 10^3/uL (4.5-11.0)
[2018-10-10 08:05] LABS: BLOOD UREA NITROGEN 6 mg/dL (7-21); CALCIUM 8.8 mg/dL (8.4-10.5); GFR NON-AFRICAN AMERICAN > 60
--- NOTE | 2018-10-10 08:24 | CP.PCM.PN ---
<Ronaldo Bassett - Last Filed: 10/10/18 08:18> Subjective - Date & Time of Evaluation Date of Evaluation: 10/10/18 Time of Evaluation: 08:19 - Subjective Subjective: Surgery Progress Note for Dr. Mattson 58F seen and evaluated at bedside this morning. No acute events overnight. No complaints this morning. Patient continues to be afebrile. Patient ambulating, voiding, having BM, and passing flatus. No abdominal pain. Denies f/c, n/v/d, SOB, CP, or urinary symptoms. Objective - Vital Signs/Intake and Output Vital Signs (last 24 hours): Temp Pulse Resp BP Pulse Ox 98.8 F 97 H 18 100/66 98 10/09/18 16:23 10/09/18 16:23 10/09/18 16:23 10/09/18 16:23 10/09/18 16:23 Intake and Output: 10/10/18 10/10/18 06:59 18:59 Intake Total 1220 Balance 1220 - Medications Medications: Current Medications Acetaminophen (Tylenol 325mg Tab) 650 mg PO Q4H PRN PRN Reason: pain fever Famotidine (Pepcid) 40 mg PO HS [facility]I Last Admin: 10/09/18 22:44 Dose: 40 mg Dextrose/Sodium Chloride (Dextrose 5%/0.9% Ns 1000 Ml) 1,000 mls @ 100 mls/hr IV .Q10H [facility]I Last Admin: 10/10/18 03:00 Dose: 100 mls/hr Meropenem (Merrem Iv 1 Gm Premix) 1 gm in 50 mls @ 100 mls/hr IVPB Q8 [facility]; Protocol Last Admin: 10/10/18 06:15 Dose: 100 mls/hr Vancomycin HCl (Vancomycin 1gm) 1 gm in 250 mls @ 167 mls/hr IVPB Q12H [facility]I; Protocol Last Admin: 10/09/18 23:45 Dose: 167 mls/hr Loratadine (Claritin) 10 mg PO DAILY [facility] Mometasone Furoate (Elocon Cream) 0 gm TOP BID SHADI Last Admin: 10/09/18 18:21 Dose: Not Given Montelukast Sodium (Singulair) 10 mg PO DAILY [facility] Ondansetron HCl (Zofran Inj) 4 mg IVP Q6 PRN PRN Reason: Nausea/Vomiting Zolpidem Tartrate (Ambien) 5 mg PO HS SHADI; Protocol Last Admin: 10/09/18 22:43 Dose: 5 mg - Labs Labs: 10/10/18 05:30 10/10/18 05:30 - Constitutional Appears: Well, Non-toxic, No Acute Distress - Head Exam Head Exam: ATRAUMATIC, NORMAL INSPECTION, NORMOCEPHALIC - Eye Exam Eye Exam: EOMI Pupil Exam: PERRL - ENT Exam ENT Exam: Mucous Membranes Moist - Respiratory Exam Respiratory Exam: NORMAL BREATHING PATTERN. absent: Wheezes, Respiratory Distress - Cardiovascular Exam Cardiovascular Exam: REGULAR RHYTHM, +S1, +S2 - GI/Abdominal Exam GI & Abdominal Exam: Soft, Mass, Normal Bowel Sounds. absent: Distended, Firm, Guarding, Tenderness, Rebound - Extremities Exam Extremities Exam: Normal Inspection. 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 Bundy PGY1 <Randy Guerra - Last Filed: 10/11/18 07:37> Objective - Vital Signs/Intake and Output Vital Signs (last 24 hours): Temp Pulse Resp BP Pulse Ox 98.8 F 97 H 18 100/66 98 10/09/18 16:23 10/09/18 16:23 10/09/18 16:23 10/09/18 16:23 10/09/18 16:23 - Labs Labs: 10/10/18 05:30 10/10/18 05:30 Assessment and Plan - Assessment and Plan (Free Text) Plan: All medical record entries made by the resident were at my direction. I have reviewed the chart and agree that the record accurately reflects my personal performance of the history, physical exam, and medical decision making. given elevated CEA of about 900, recommend, Y90 local regional treatment, and repeat biopsy for genetic analysis. Needs CT of the chest or PET CT. If CEA decreases significantly following Y90, and disease confined to the right lobe, may consider extended right lobectomy.
--- NOTE | 2018-10-10 08:38 | CP.PCM.PN ---
Subjective - Date & Time of Evaluation Date of Evaluation: 10/10/18 Time of Evaluation: 06:00 - Subjective Subjective: Robbin Tovar PGY2 Heme/Onc Progress Note for Dr. العلي Patient seen and evaluated bedside. No acute issues overnight. Patient says she feels well and wants to go home. She says shes been eating well, has not had fever, chills, nausea, vomiting, abdominal pain or any other complaints at this time. Objective - Vital Signs/Intake and Output Vital Signs (last 24 hours): Temp Pulse Resp BP Pulse Ox 98.8 F 97 H 18 100/66 98 10/09/18 16:23 10/09/18 16:23 10/09/18 16:23 10/09/18 16:23 10/09/18 16:23 Intake and Output: 10/10/18 10/10/18 06:59 18:59 Intake Total 1220 Balance 1220 - Medications Medications: Current Medications Acetaminophen (Tylenol 325mg Tab) 650 mg PO Q4H PRN PRN Reason: pain fever Famotidine (Pepcid) 40 mg PO HS [facility]I Last Admin: 10/09/18 22:44 Dose: 40 mg Dextrose/Sodium Chloride (Dextrose 5%/0.9% Ns 1000 Ml) 1,000 mls @ 100 mls/hr IV .Q10H [facility] Last Admin: 10/10/18 03:00 Dose: 100 mls/hr Meropenem (Merrem Iv 1 Gm Premix) 1 gm in 50 mls @ 100 mls/hr IVPB Q8 [facility]; Protocol Last Admin: 10/10/18 06:15 Dose: 100 mls/hr Vancomycin HCl (Vancomycin 1gm) 1 gm in 250 mls @ 167 mls/hr IVPB Q12H [facility]; Protocol Last Admin: 10/09/18 23:45 Dose: 167 mls/hr Loratadine (Claritin) 10 mg PO DAILY [facility] Mometasone Furoate (Elocon Cream) 0 gm TOP BID [facility]I Last Admin: 10/09/18 18:21 Dose: Not Given Montelukast Sodium (Singulair) 10 mg PO DAILY [facility] Ondansetron HCl (Zofran Inj) 4 mg IVP Q6 PRN PRN Reason: Nausea/Vomiting Zolpidem Tartrate (Ambien) 5 mg PO HS [facility]ADI; Protocol Last Admin: 10/09/18 22:43 Dose: 5 mg - Labs Labs: 10/10/18 05:30 10/10/18 05:30 - Constitutional Appears: Non-toxic, No Acute Distress - Head Exam Head Exam: ATRAUMATIC, NORMAL INSPECTION, NORMOCEPHALIC - Eye Exam Eye Exam: EOMI, Normal appearance - ENT Exam ENT Exam: Mucous Membranes Moist - Respiratory Exam Respiratory Exam: Clear to Ausculation Bilateral, NORMAL BREATHING PATTERN - Cardiovascular Exam Cardiovascular Exam: REGULAR RHYTHM - Neurological Exam Neurological Exam: Alert, Awake, Oriented x3 Assessment and Plan - Assessment and Plan (Free Text) Plan: 58F, with PMH of left breast carinoma hormone positive receptor, 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 -afebrile -vanc manuel per ID -[address] of Abd and Liver - right posterior lobe 9cm in diameter mass w/ small rim enhancing lesions -thyroid lesions of unclear etiology that may need biopsy -Tylenol for fevers PRN -cultures negative currently -ID following -Dr. Mattson following
[2018-10-10] MEDS: Mometasone 0.1% Cream(15 gm) TOP SCH (10:58)
[2018-10-10] MEDS: Vancomycin 1gm in NS 250ml 1 GM/250 ML BAG IVPB SCH (12:36)
--- NOTE | 2018-10-10 18:59 | PN ---
DATE: 10/10/2018 LOCATION: The patient was seen earlier in room 365, bed 2. SUBJECTIVE: The patient is in bed, in no acute distress, nontoxic. PHYSICAL EXAMINATION VITAL SIGNS: Temperature is 99, blood pressure is 101/60, and respiratory rate of 18. HEENT: Unremarkable. NECK: Supple. LUNGS: Decreased breath sounds. HEART: Normal S1 and S2. ABDOMEN: Soft and nontender. LABORATORY DATA: Reveals the patient's blood cultures and urine cultures are negative. White count is 3.1. ASSESSMENT AND PLAN: A 58-year-old female with a stage IV cholangiocarcinoma with metastasis to the liver, status post 5 cycles of chemotherapy with a Port-A-Cath, history of breast cancer who was admitted with fevers; however, cultures have been negative. The patient has not had any fevers in the hospital though the fevers occurred. Imaging is reviewed. All cultures are negative. We will discontinue the antibiotics. No need for any antibiotics at this point. I believe the fevers may have been secondary to liver metastasis. Alejandro Chavarria MD
== END 2018-10-10 15:13 | disposition home or self-care (01) | DRG 203 ==
LOC: ED 13:07 → ERH 14:01 → 3RNO 16:39
PROVIDERS: ADMIT Internal Medicine; ATTEND Internal Medicine
DX: C78.7 Secondary malignant neoplasm of liver and intrahepatic bile duct (principal); D61.818 Other pancytopenia; C23 Malignant neoplasm of gallbladder; D69.59 Other secondary thrombocytopenia; E87.8 Other disorders of electrolyte and fluid balance, not elsewhere classified; R50.9 Fever, unspecified; E04.1 Nontoxic single thyroid nodule; K76.0 Fatty (change of) liver, not elsewhere classified; K80.20 Calculus of gallbladder without cholecystitis without obstruction; N63.20 Unspecified lump in the left breast, unspecified quadrant; Z17.0 Estrogen receptor positive status [ER+]; Z85.3 Personal history of malignant neoplasm of breast; Z88.0 Allergy status to penicillin; R16.1 Splenomegaly, not elsewhere classified